=== PATIENT | male | born 1975 ===

== ENCOUNTER 2018-01-15 14:39 | Emergency (ER) | payer OTHER ==
[~2018-01-15] VITALS: Ht 162.6 cm; Wt 90.3 kg
[2018-01-15] MEDS ORDERED: ALBU8HFA4 INFIL (14:47)
--- NOTE | 2018-01-15 15:59 | NUR ---
[facility] at the bedside for report.
[2018-01-15] MEDS ORDERED: PIPERACILLIN/TAZOBACTAM/D5W 3.375 G in PREMIXED 1 EACH IV SCH (17:00)
[2018-01-15] MEDS ORDERED: PIPERACILLIN/TAZOBACTAM/D5W 50 ML IV ONE (17:04)
--- NOTE | 2018-01-15 17:06 | NUR ---
Call placed to [facility], Dr. Dawson has been paged.
[2018-01-15] MEDS ORDERED: TDAP DIPH,PERTUSS,TET VAC/PF 0.5 ML DISP.SYRIN IM ONE ×2 (17:15→17:22)
[2018-01-15 17:16] LABS: BASOPHILS # (AUTO) 0.2 K/uL (0.0-8.0); BASOPHILS % (AUTO) 0.8 % (0.0-2.0); EOSINOPHILS # (AUTO) 0.5 K/uL (0.0-0.7); EOSINOPHILS % (AUTO) 2.6 % (0.0-7.0); HEMOGLOBIN 14.6 g/dL (12.5-16.3); LYMPHOCYTES # (AUTO) 2.4 K/uL (20.0-40.0); MEAN CORPUSCULAR HEMOGLOBIN 30.2 uug (23.8-33.4); MEAN CORPUSCULAR HGB CONC 35 g/dL (32.5-36.3); MEAN CORPUSCULAR VOLUME 86.8 fL (73.0-96.2); MONOCYTES # (AUTO) 1.2 K/uL (2.0-10.0); NEUTROPHILS # (AUTO) 15.4 K/uL (1.8-8.9); NEUTROPHILS % (AUTO) 78.6 % (38.5-71.5); PLATELET COUNT (AUTO) 286 K/uL (152-348); RED BLOOD CELL COUNT(AUTO) 4.84 MIL/uL (4.06-5.63); WHITE BLOOD COUNT (AUTO) 19.6 K/uL (3.6-10.2)
[2018-01-15 17:21] LABS: CREATININE 1.1 mg/dL (0.6-1.3); POTASSIUM 3.9 mmol/L (3.5-5.1)
[2018-01-15 17:27] LABS: BILIRUBIN,TOTAL 0.3 mg/dL (0.2-1.0); TOTAL PROTEIN, SERUM 8.3 g/dL (6.4-8.2)
--- NOTE | 2018-01-15 17:27 | NUR ---
FARSHAD speaking with Dr. Dawson
[2018-01-15] MEDS ORDERED: PIPERACILLIN/TAZOBACTAM/D5W 3.375 G in PREMIXED 1 EACH IV ONE (17:28)
[2018-01-15] MEDS ORDERED: LIDOCAINE HCL 1% 20 ML VIAL IJ ONE (18:15)
--- NOTE | 2018-01-15 19:22 | NUR ---
Patient discharged to home in stable conditon. Written and verbal after care instructions given. Patient verbalizes understanding of instructions. Patient ambulated out of ER in steady gait. All belongings with pt. ADONIS.
[2018-01-15 19:23] VITALS: BP 141/84
== END 2018-01-15 19:24 | disposition home or self-care (01) ==
LOC: ER 14:42
DX: S42.022A Displaced fracture of shaft of left clavicle, initial encounter for closed fracture (principal); S01.512A Laceration without foreign body of oral cavity, initial encounter; R04.0 Epistaxis; J45.909 Unspecified asthma, uncomplicated; Z79.899 Other long term (current) drug therapy; V43.52XA Car driver injured in collision with other type car in traffic accident, initial encounter; Y93.89 Activity, other specified; Y92.410 Unspecified street and highway as the place of occurrence of the external cause; Y99.8 Other external cause status
CPT/HCPCS: 12011; 36415; 70450; 70486; 71045; 73000; 73030; 80053; 82550; 84484; 85025; 90471; 90715; 93005; 96374; 99285; A4663; J2543; J3490; 70030-TC